=== PATIENT | female | born 1970 | race Caucasian/White ===

== ENCOUNTER 2019-01-17 13:19 | Emergency (ER) | payer SELFPAY ==
[~2019-01-17] VITALS: Ht 160 cm; Wt 66.8 kg
[2019-01-17 13:30] VITALS: TEMP 98.4
[2019-01-17] MEDS ORDERED: NORCO 325 MG-101 TAB PO (13:38)
[2019-01-17] MEDS ORDERED: PROTONIX 40MG T40 MG PO (13:38)
[2019-01-17] MEDS ORDERED: REGLAN 5MG T5 MG/TAB PO (13:39)
[2019-01-17 14:51] LABS: BASO # 0.1 (0.0-0.2); BASO % 0.9 % (0.0-2.0); EOS # 0.3 (0.0-0.7); EOS % 3.6 % (0-4.0); GRAN # 4.5 (1.4-6.5); GRAN % 52.1 % (42.2-75.2); HEMATOCRIT 46.6 % (37.0-47.0); HEMOGLOBIN 15.7 g/dl (12.5-16.0); MEAN CELL VOLUME 83 fl (80.0-100.0); MEAN CORPUSCULAR HEMOGLOBIN 28 pg (27.0-31.0); MEAN CORPUSCULAR HGB CONC 34 g/dl (33.0-37.0); MEAN PLATELET VOLUME 9.7 fl (7.4-10.4); MONO # 0.7 (0.1-0.6); MONO % 8.2 % (1.7-9.3); PLATELET COUNT 293 K/mm3 (130-400); RED BLOOD COUNT 5.62 M/mm3 (4.10-5.30); REDCELL DISTRIBUTION WIDTH-CV 15.6 % (11.5-14.5)
[2019-01-17 15:06] LABS: ALBUMIN 4.7 gm/dL (3.5-5.0); BILIRUBIN,TOTAL 0.5 mg/dL (0.0-1.0); CALCIUM 9.6 mg/dL (8.4-10.2); CREATININE, serum 0.66 (0.52-1.25); TOTAL PROTEIN 7.8 gm/dL (6.4-8.2)
[2019-01-17 15:12] LABS: C-REACTIVE PROTEIN 0.5 mg/dL (0.0-0.9)
[2019-01-17] MEDS ORDERED: PHENERGAN W/CO120 M1 PO (16:47)
[2019-01-17 16:52] LABS: COLLECTION METHOD CLEAN CATCH
[2019-01-17 17:01] LABS: MUCOUS Present /lpf; PH 5 (5-8); SQUAMOUS EPITHELIAL 0-2 /hpf; URINE APPEARANCE Clear; URINE BACTERIA None Seen /hpf; URINE BILIRUBIN Negative (NEGATIVE); URINE BLOOD Negative (NEGATIVE); URINE COLOR Yellow; URINE GLUCOSE Negative (NEGATIVE); URINE KETONE Trace (NEGATIVE); URINE LEUKOCYTE ESTERASE Negative (NEGATIVE); URINE NITRATE Negative (NEGATIVE); URINE PROTEIN(semi-quant) Negative (NEGATIVE); URINE RBC 0-2 /hpf; URINE UROBILINOGEN Negative (NEGATIVE)
[2019-01-17 17:08] VITALS: BP 142/86; PULSE 86
== END 2019-01-17 17:09 | disposition home or self-care (01) ==
LOC: COL.ER 13:19
PROVIDERS: Emergency Medicine
DX: R10.13 Epigastric pain (principal); E11.9 Type 2 diabetes mellitus without complications; Z90.49 Acquired absence of other specified parts of digestive tract; Z90.89 Acquired absence of other organs; Z88.2 Allergy status to sulfonamides
CPT/HCPCS: C9113; J0780; J1170; J7030

== ENCOUNTER 2019-02-03 17:51 | Emergency (ER) | payer MEDICAID ==
[~2019-02-03] VITALS: Ht 160 cm; Wt 65.9 kg
[~2019-02-03 17:51] MED LIST: NORCO 325 MG-101 TAB PO; PHENERGAN W/CO120 M1 PO; PROTONIX 40MG T40 MG PO; REGLAN 5MG T5 MG/TAB PO
[2019-02-03 18:03] VITALS: BP 110/66; TEMP 98
[2019-02-03 18:50] LABS: COLLECTION METHOD CLEAN CATCH
[2019-02-03 18:53] LABS: HEMATOCRIT 44.3 % (37.0-47.0); HEMOGLOBIN 15.1 g/dl (12.5-16.0); MEAN CELL VOLUME 82 fl (80.0-100.0); MEAN CORPUSCULAR HEMOGLOBIN 28 pg (27.0-31.0); MEAN CORPUSCULAR HGB CONC 34 g/dl (33.0-37.0); MEAN PLATELET VOLUME 9.2 fl (7.4-10.4); PLATELET COUNT 212 K/mm3 (130-400); RED BLOOD COUNT 5.39 M/mm3 (4.10-5.30); REDCELL DISTRIBUTION WIDTH-CV 14.9 % (11.5-14.5)
[2019-02-03 18:57] LABS: MUCOUS Present /lpf; PH 5 (5-8); URINE APPEARANCE Hazy; URINE BACTERIA None Seen /hpf; URINE BILIRUBIN Positive (NEGATIVE); URINE BLOOD 2+ (NEGATIVE); URINE COLOR Amber; URINE GLUCOSE Negative (NEGATIVE); URINE KETONE Trace (NEGATIVE); URINE LEUKOCYTE ESTERASE Negative (NEGATIVE); URINE NITRATE Negative (NEGATIVE); URINE PROTEIN(semi-quant) 1+ (NEGATIVE); URINE RBC 20-50 /hpf
[2019-02-03 19:05] LABS: ALBUMIN 4.6 gm/dL (3.5-5.0); BILIRUBIN,TOTAL 0.6 mg/dL (0.0-1.0); CALCIUM 9.5 mg/dL (8.4-10.2); CREATININE, serum 0.67 (0.52-1.25); POTASSIUM 4.1 mmol/L (3.4-5.0); TOTAL PROTEIN 8.1 gm/dL (6.4-8.2)
[2019-02-03 19:08] LABS: LYMPHOCYTE 13 % (20.0-51.0); NEUTROPHILS 81 % (42.0-75.2); PLATELET ESTIMATE NORMAL (NORMAL)
[2019-02-03 19:16] LABS: C-REACTIVE PROTEIN 18.3 mg/dL (0.0-0.9)
[2019-02-03] MEDS ORDERED: CARAFATE S1 GM/10 ML PO (21:55)
[2019-02-03] MEDS ORDERED: PHENERGAN 25 TA25 MG PO (21:55)
[2019-02-03] MEDS ORDERED: PRIL40 PO (21:55)
[2019-02-03 22:22] VITALS: PULSE 100
== END 2019-02-03 22:20 | disposition home or self-care (01) ==
LOC: COL.ER 17:51
PROVIDERS: Emergency Medicine
DX: R10.13 Epigastric pain (principal); Z90.49 Acquired absence of other specified parts of digestive tract
CPT/HCPCS: J0780; J1170; J1885; J7030; Q9967

== ENCOUNTER 2019-08-12 21:32 | Emergency (ER) | payer MEDICAID ==
[~2019-08-12] VITALS: Ht 162.6 cm; Wt 61.4 kg
[~2019-08-12 21:32] MED LIST changes: +CARAFATE S1 GM/10 ML PO; +PHENERGAN 25 TA25 MG PO; +PRIL40 PO
[2019-08-12 21:42] VITALS: BP 153/85; TEMP 98
[2019-08-12] MEDS ORDERED: VICODIN HP 10 PO (21:45)
[2019-08-12] MEDS ORDERED: ATROVENT INHALE14 GM IH (21:45)
[2019-08-12] MEDS ORDERED: DESYREL 100MG100 MG PO (21:45)
[2019-08-12] MEDS ORDERED: LIORESAL20 MG PO (21:45)
[2019-08-12 23:03] LABS: BASO # 0.1 (0.0-0.2); BASO % 1.1 % (0.0-2.0); EOS # 0.4 (0.0-0.7); EOS % 5.4 % (0-4.0); GRAN # 3.6 (1.4-6.5); GRAN % 49.1 % (42.2-75.2); HEMATOCRIT 43.5 % (37.0-47.0); HEMOGLOBIN 14.3 g/dl (12.5-16.0); LYMPH # 2.7 (1.2-3.4); MEAN CELL VOLUME 85 fl (80.0-100.0); MEAN CORPUSCULAR HEMOGLOBIN 28 pg (27.0-31.0); MEAN CORPUSCULAR HGB CONC 33 g/dl (33.0-37.0); MEAN PLATELET VOLUME 9.8 fl (7.4-10.4); MONO # 0.6 (0.1-0.6); MONO % 8.1 % (1.7-9.3); PLATELET COUNT 245 K/mm3 (130-400); RED BLOOD COUNT 5.14 M/mm3 (4.10-5.30); REDCELL DISTRIBUTION WIDTH-CV 15.1 % (11.5-14.5)
[2019-08-12 23:10] LABS: COLLECTION METHOD CLEAN CATCH
[2019-08-12 23:16] LABS: ALANINE AMINOTRANSFERASE 16 U/L (9-52); ALBUMIN 4.6 gm/dL (3.5-5.0); ALKALINE PHOSPHATASE 75 U/L (50-136); ANION GAP 8 mmol/L (7-16); AST,SGOT 23 U/L (15-37); BILIRUBIN,TOTAL 0.5 mg/dL (0.0-1.0); BLOOD UREA NITROGEN 16 mg/dL (7-17); C-REACTIVE PROTEIN < 0.5 mg/dL (0.0-0.9); CALCIUM 9.2 mg/dL (8.4-10.2); CARBON DIOXIDE 29 mmol/L (22-30); CHLORIDE 102 mmol/L (98-107); CREATININE, serum 0.66 (0.52-1.25); GLUCOSE 93 mg/dL (74-106); LIPASE 151 U/L (23-300); POTASSIUM 3.9 mmol/L (3.4-5.0); SODIUM 139 mmol/L (137-145); TOTAL PROTEIN 7.6 gm/dL (6.4-8.2)
[2019-08-12 23:29] LABS: MUCOUS Present /lpf; PH 6 (5-8); SQUAMOUS EPITHELIAL 0-2 /hpf; URINE APPEARANCE Clear; URINE BACTERIA None Seen /hpf; URINE BILIRUBIN Negative (NEGATIVE); URINE BLOOD Negative (NEGATIVE); URINE COLOR Yellow; URINE GLUCOSE Negative (NEGATIVE); URINE KETONE Trace (NEGATIVE); URINE LEUKOCYTE ESTERASE Negative (NEGATIVE); URINE NITRATE Negative (NEGATIVE); URINE PROTEIN(semi-quant) Negative (NEGATIVE); URINE UROBILINOGEN >=4.0 mg/dL (NEGATIVE)
[2019-08-13] MEDS ORDERED: VOLTAREN 75 DR75 MG PO (00:18)
[2019-08-13] MEDS ORDERED: FLEXERIL 1010 MG/TAB PO (00:18)
[2019-08-13 00:45] VITALS: PULSE 84
== END 2019-08-13 00:45 | disposition home or self-care (01) ==
LOC: COL.ER 21:32
PROVIDERS: Emergency Medicine
DX: R10.10 Upper abdominal pain, unspecified (principal); G89.29 Other chronic pain; F17.210 Nicotine dependence, cigarettes, uncomplicated; Z85.038 Personal history of other malignant neoplasm of large intestine
CPT/HCPCS: J1885; J2405; J3360; J7030